=== PATIENT | female | born 1955 | race Caucasian/White ===

== ENCOUNTER 2017-03-11 18:30 | Emergency (ER) | payer BC ==
[2017-03-11] MEDS ORDERED: Sodium Chloride 0.9% 1,000 ML PRIMARY IV ONE (18:47)
[2017-03-11] MEDS ORDERED: NORMAL SALINE 10 ML SYRINGE FLUSH IVP PRN (18:47)
[2017-03-11 19:19] LABS: BASOPHILS # (AUTO) 0.04 10*3/UL; BASOPHILS % (AUTO) 0.5 % (0-1); EOSINOPHILS % (AUTO) 2.6 % (0-8); HEMATOCRIT 40.1 % (37.0-47.0); HEMOGLOBIN 12.6 g/dL (12.0-16.0); LYMPHOCYTES # (AUTO) 2.18 10*3/uL; MEAN CORPUSCULAR HEMOGLOBIN 28.4 PG (27-31); MEAN CORPUSCULAR HGB CONC 31.4 g/dL (33-37); MEAN CORPUSCULAR VOLUME 90.3 FL (81-99); MEAN PLATELET VOLUME 9.6 FL (7.4-12.2); MONOCYTES # (AUTO) 0.79 10*3/UL (0.3-0.8); MONOCYTES % (AUTO) 10.3 % (5-15); NEUTROPHILS # (AUTO) 4.45 10*3/UL; NEUTROPHILS % (AUTO) 57.9 % (50-80); RED BLOOD COUNT 4.44 10^6/uL (4.20-5.40)
[2017-03-11 19:23] LABS: VENOUS PH 7.38 (7.32-7.42)
[2017-03-11 19:23] LABS: PLATELET MORPHOLOGY COMMENT NORMAL MORPHOLOGY (NORM); RBC MORPHOLOGY COMMENT NORMAL MORPHOLOGY (NORM); WBC MORPHOLOGY COMMENT NORMAL MORPHOLOGY (NORM)
[2017-03-11 19:32] LABS: BLOOD UREA NITROGEN 16 mg/dL (7-22); BUN/CREATININE RATIO 17.77 (6-20); EST GLOMERULAR FILTRATION > 60 (>60 ml/min/1.73m(2)); SERUM ALBUMIN 4.1 g/dL (3.5-4.8)
[2017-03-11 19:45] LABS: CREATINE KINASE MB 0.94 NG/ML (0.00-5.00)
[2017-03-11 19:46] LABS: TROPONIN I < 0.012 ng/mL (< 0.040)
[2017-03-11 21:43] VITALS: RESP 20; TEMP 98
--- NOTE | 2017-03-11 21:55 | EKG ---
[address] [address] Measurements Intervals [place] Rate: 59 P: 86 NC: 177 QRS: 27 QRSD: 97 T: 41 QT: 465 QTc: 465 Interpretive Statements SINUS BRADYCARDIA Compared to ECG 07/09/2015 11:31:19 Sinus rhythm no longer present Electronically Signed On 03-12-17 09:08:47 MDT by Jayden Rojas MD [email or web address]
--- NOTE | 2017-03-12 06:31 | PDOC ---
Palpitations HPI - General Chief Complaint: Palpitations Stated Complaint: PALPITATIONS WITH DIZZINESS AND NAUSEA Date Seen by Provider: 03/11/17 Time Seen by Provider: 18:37 Source: POSITIVE: Patient Exam Limitations: POSITIVE: No limitations Nurse's Notes Reviewed & Considered: Yes Nurse's Notes Reviewed & Considered: Yes - History of Present Illness Initial Comments: The patient is a 61 year old female. She states that for the past 2 weeks she has intermittently had this sensation of "my heart skipping beats". She does not think her heart rate has been accelerated. She has had no associated chest pain. She states that when she gets these episodes she does have a sensation of "dizziness and nausea". She has not had any loss of consciousness or syncope. Patient has a history of chronic back pain and states that she has had two "spinal fusions "which she states were complicated by adhesive arachnoiditis in 2011 which he states causes chronic back pain. She had a gastric bypass in the past and states that she initially lost 100 pounds, but has gained 50 pounds back. She uses a fentanyl patch and gabapentin for pain control. Body Location Affected: REPORTS: Chest ("Heart palpitations) Timing: REPORTS: Abrupt, Intermittent Duration: >1 week (2 weeks) Severity: Moderate Quality: REPORTS: Other (Patient denies any pain anywhere) Gone now, lasted (minutes):: 2 Intermittent Episodes Lasting (minutes): 2 Context: DENIES: Onset w/ Emotional Upset, Onset w/ Sleep, Hx of Caffeine Use, Hx of Decongestant Use, Hx of Cocaine Abuse, Hx of Amphetamine Abuse, Hx of Arrhythmia, Hx of VT, Hx of SVT, Hx of Atrial Fibrillation, Hx of WPW, Other Associated Symptoms: REPORTS: Anxiety. DENIES: Fever, Chills, Sweating, Mid- Chest Pain, Chest Pain, Chest Discomfort, Precordial Chest Pain, Neck Pain, Back Pain, Headache, Hurts to Breathe, Shortness of Breath, Light-Headedness, Tingling in Hands, Tingling in Face, Muscle Spasms in Hands, Muscle Spasms in Feet, Other Modifying Factors: worse with: None Reported, Movement, Position Change, Pressing On Area, Sitting up, Rest, Antacids, Nitroglycerin, Oxygen, Aspirin, Deep breathing, Exertion, Other Similar Symptoms Previously: Yes Recently seen/treated/hospitalized: No Any Prior Injuries Related to Current Complaint?: No - Patient Home Medications Home Medications: Home Medications Multivitamins W-Minerals [Multivitamin] 1 each PO .AM 04/23/10 Potassium 1 tab PO BID 04/23/10 Cholecalciferol (Vitamin D3) [Vitamin D-3] 2,000 unit PO QD 120 Days 12/23/11 Denosumab [Prolia] 60 mg SUBCUT every 6 mo. #0 ml 04/29/12 Cetirizine HCl [Zyrtec] 1 tab PO DAILY PRN 11/03/12 Magnesium l-Lactate [Mag-Tab Sr] 1 tab PO BID 03/08/13 [place]-3 Fatty Acids [Fish Oil] 1 cap PO HS 03/08/13 Vitamin B Complex [B Complete] 1 each PO DAILY 03/22/13 Calcium Carbonate [Calcium] 1 tab PO BID tab 07/31/13 Estradiol [Estrace] 1 gm VAGINAL QHS #1 tube 12/28/13 Cyanocobalamin Inj [Vitamin B-12 Inj] 1,000 mcg IM MONTHLY #12 vial 11/08/14 Celecoxib [Celebrex] 1 cap PO QD #30 cap 03/19/15 Triamcinolone Acetonide 15 gm TOPICAL QID #1 tube 07/09/15 Famotidine [Pepcid] 20 mg PO BID #30 tab 07/15/15 Fluticasone Propionate [Flonase Allergy Relief] 2 spr KATI QHS #1 bottle Furosemide 1 tab PO QD PRN #30 tab 08/23/15 Potassium Chloride 1 cap PO QD #30 cap 08/23/15 Estrogens, Conj Vaginal Cream [Premarin Vaginal Cream] 0.5 - 1 gm VAGINAL 2-3x weekly #1 tube 08/27/15 Gentamicin Sulfate 1 drp EACH EYE Q4H PRN #1 drop 05/27/16 Ipratropium Velma 1 - 2 spr NS QID PRN #1 spray 11/05/16 Duloxetine HCl 1 cap PO DAILY #30 cap 12/24/16 Losartan Potassium 1 tab PO QHS #30 tab 12/24/16 Metoprolol Tartrate 1 tab PO BID #60 tab 12/24/16 Pantoprazole Sodium 1 tab ORAL QD #30 tab 01/25/17 Gabapentin 1 cap PO TID #90 cap 02/15/17 Temazepam 1 cap PO QHS #30 cap 02/15/17 Fentanyl 75 mcgh TRANSDERM Q72H #10 patch 02/24/17 Oxycodone HCl 1 tab PO QID PRN #120 tab 02/24/17 Tizanidine HCl 1 tab PO Q8H PRN #90 tab 03/08/17 - Patient Allergies Allergies/Adverse Reactions: Allergies Allergy/AdvReac Type Severity Reaction Status Date / Time adhesive Allergy Intermediate blisters Verified 03/11/17 18:50 CATARINO Inhibitors AdvReac Severe HEADACHE, Verified 03/11/17 18:50 [Catarino Inhibitors] RAW THROAT, COUGHING Past Medical History - heen HEENT History: Denies History Cardiovascular History: Hypertension Additional Cardiovasular History: HX OF CHEST PAIN 01/30/13 NON CARDIAC Respiratory History: Pneumonia, Sleep Apnea, Home CPAP Use Additional Respiratory History: INSOMNIA; RENETTA Gastrointestinal History: GERD, Peptic Ulcer Disease, GI Bleed Additional Gastrointestinal History: CONSTIPATION/DIARRHEA/ HX GI BLEED SOURCE NOT IDENTIFIED Genitourinary History: Denies History Endocrine History: Denies History Musculoskeletal History: Osteoporosis, Back Pain, Joint Pain Prosthesis or Implant: Yes (LUMBAR FUSION) Additional Musculoskeletal History: BILAT HIP PAIN Neurological History: Frequent Headaches Additional Neurological History: DIZZINESS Blood Disorders: Denies History Additional Blood Disorders History: HISTORY OF ANEMIA D/T GASTRIC BYPASS Psychiatric History: Denies History History of Sexually Transmitted Diseases: No Female Reproductive History: Denies History Obstetrical History: Denies History Cancer History: Denies History In Past Year Been Physically Harmed or Verbally Threatened: No History of MDRO: No History of Other Communicable Diseases: No (CHICKENPOX MEASLES) Tobacco Use: Never Smoker Alcohol Use: None Substance Use Type: None Previous Surgical History: Yes Type / Date of Surgery: T&A 1967/HYST W/ BSO TVT-TO/LAP KASHIF 2004/COLONOSCOPY ABOUT 5 YEARS AGO/UPPER ENDOSCOPY 2012/GASTRIC BYPASS 2005/ R KNEE SCOPE 2005/ VERTEBRAL FUSION L4-L5 2010 Anesthesia Reactions: No Malignant Hyperthermia: No Significant Family History: Heart disease, Cancer, Renal disease Additional Family History: alzheimers, MOTHER HAD RECTAL CA, FATHER HAD HEART DISEASE Past Medical History Reviewed: Reviewed - No Changes ROS - Limitations ROS Limitations: No Limitations Constitution: REPORTS: Denies Symptoms Cardiovascular: REPORTS: Heart Palpitations Respiratory: REPORTS: Denies Resp Symptoms Neurological: REPORTS: Denies Neuro Symptoms Gastrointestinal: REPORTS: Nausea Endocrine: REPORTS: Denies Symptoms Musculoskeletal: REPORTS: Denies MS Symptoms Genitourinary: REPORTS: Denies Symptoms Eyes: REPORTS: Denies Symptoms ENT: REPORTS: Denies Symptoms Skin: REPORTS: Denies Skin Symptoms Lympathic: REPORTS: Denies Lympathic Symptoms Immunologic: POSITIVE: Denies Symptoms Psychiatric: POSITIVE: Anxiety Palpitations Exam - General Appearance General Appearance: REPORTS: Alert, Cooperative, No Acute Distress, No Evidence of Trauma, Anxious - HEENT HEENT: POSITIVE: Head Inspection Nml, Eyes Inspection Nml, Ears Inspection Nml, Nose Inspection Nml, Oral/Dental Inspect. Nml, Pharynx Inspect. Nml, PERRL, EOMI - Neck Neck: POSITIVE: Normal Inspection - Respiratory Respiratory: REPORTS: No Respiratory Distress, Breath Sounds Normal, Chest Non- Tender - Cardiovascular Cardiovascular: POSITIVE: Regular Rate and Rhythm, Normal PMI, No JVD, No Murmur , No Gallop, No Friction Rub Peripheral Pulses: Radial (R): 2+, Radial (L): 2+ - Abdomen Abdomen: Soft: (All Quadrants), Normal Bowel Sounds: (All Quadrants), Denies Tenderness: (All Quadrants), No Splenomegaly: (All Quadrants), No Hepatomegaly: (All Quadrants), No Guarding: (All Quadrants), No Rebound: (All Quadrants), No Palpable Pulse: (All Quadrants), No Palpabale Mass: (All Quadrants), No Distention: (All Quadrants), No Rigidity: (All Quadrants) - Back Back: POSITIVE: Normal Inspection - Skin Skin: REPORTS: Intact, Normal For Race, Warm, Dry, No Rash - Extremities Extremity: Non-Tender: (All Extremities), Normal ROM: (All Extremities), Normal Inspection: (All Extremities) - Neurological / Psychological Neurological: POSITIVE: Oriented X3, store facility technician Normal As Tested, Motor Normal, Sensation Normal, 5, 6 Palpitations Progress - Results Reviewed by me Xrays/CTs/US Reviewed by me: Yes Discussed with Radiologist: No Radiology Findings: Some elevation of left hemidiaphragm; otherwise normal Lab Results Reviewed: Yes Lab Results:: Laboratory Results 03/11/17 03/11/17 03/11/17 Range/Units 19:16 19:18 19:30 WBC 7.68 (4.8-10.8) 10^3/uL RBC 4.44 (4.20-5.40) 10^6/uL Hgb 12.6 (12.0-16.0) g/dL Hct 40.1 (37.0-47.0) % MCV 90.3 (81-99) FL MCH 28.4 (27-31) PG MCHC 31.4 L (33-37) g/dL RDW Std Deviation 49.1 (39-50) fL RDW Coeff of [place] 15.1 H (11.5-14.5) % Plt Count 333 (140-350) 10*3/uL MPV 9.6 (7.4-12.2) FL Immature Gran % (Auto) 0.3 (0-5) % Neut % (Auto) 57.9 (50-80) % Lymph % (Auto) 28.4 (10-50) % [place] % (Auto) 10.3 (5-15) % Eos % (Auto) 2.6 (0-8) % Baso % (Auto) 0.5 (0-1) % Immature Gran # (Auto) 0.02 10*3/UL Neut # (Auto) 4.45 10*3/UL Lymph # (Auto) 2.18 10*3/uL [place] # (Auto) 0.79 (0.3-0.8) 10*3/UL Eos # (Auto) 0.20 10*3/UL Baso # (Auto) 0.04 10*3/UL WBC Morphology Comment Normal morphology (NORM) Plt Morphology Comment Normal morphology (NORM) RBC Morph Comment Normal morphology (NORM) VBG pH 7.38 (7.32-7.42) VBG pCO2 45 (45-55) mmHg VBG HCO3 27 H (22-26) mmol/L VBG Base Excess 2 (-2-2) MMOL/L Sodium 141 (135-145) meq/L Potassium 4.1 (3.8-5.2) meq/L Chloride 103 (98-112) meq/L Carbon Dioxide 28 (23-33) meq/L Anion Gap 10 (5-20) BUN 16 (7-22) mg/dL Creatinine 0.9 (0.50-1.20) mg/dL Estimated GFR > 60 (>60 ml/min/1.73m(2)) BUN/Creatinine Ratio 17.77 (6-20) Glucose 97 (78-110) mg/dL Calculated Osmolality 292.0 (267-292) mOsm/kg Calcium 9.0 (8.7-10.7) mg/dL Total Bilirubin 0.5 (0.3-1.2) mg/dL AST 20 (8-39) IU/L ALT 29 (9-52) IU/L Alkaline Phosphatase 86 (38-126) IU/L CK-MB (CK-2) 0.94 (0.00-5.00) NG/ML Troponin I < 0.012 (< 0.040) ng/mL Total Protein 7.4 (6.1-8.0) g/dL Albumin 4.1 (3.5-4.8) g/dL Globulin 3.3 (2.50-4.10) g/dL Albumin/Globulin Ratio 1.20 L (1.3-2.0) mg/g TSH 1.33 (0.2700-4.2000) uIU/mL EKG Interpreted/Reviewed By Me:: Yes (normal; normal sinus rhythm) EKG Interpretation:: POSITIVE: Normal Sinus Rhythm, Normal Rate, Normal Intervals, Normal [place], Normal QRS, Normal ST/T - Patient's Progress Pain Medication Addressed: POSITIVE: Not Applicable School/Work Release Addressed: POSITIVE: Not Applicable Re-examine Time: 20:05 Re-Examine Comment: Patient kept on telemetry monitor throughout her stay in the emergency room. Patient remained in normal sinus rhythm and was asymptomatic, except she was mildly anxious. Status: POSITIVE: Unchanged, Re-Examined - Consult Counseled: POSITIVE: Patient, RE: Lab Results, RE: Radiology Results, RE: DX, RE : Need for F/U Patient Care Time - Estimated PCT Patient Care Time (In Minutes): 48 Vital Signs - VS Reviewed Vital Signs Reviewed: Yes Discharge Clinical Impression: Intermittent palpitations, Anxiety Discharge Disposition: Discharged to Home Condition: Good Patient Instructions Given at Discharge: Palpitations (ED) Additional Instructions: Your evaluation in the emergency room showed that your heart rate was completely normal while you are here. Your blood tests, and chest x-ray were normal except for some mild elevation of the left diaphragm. Please have a Holter monitor test done. Follow-up with your primary care provider 3 or 4 days after the test is done. Return here anytime if condition worsens in any way. Follow-up with your primary care provider. Follow Up With: LILLIAN VILLA [Primary Care Provider] - (Instructions as above. Return here as necessary. Follow-up with your primary care provider.)
--- NOTE | 2017-03-12 18:23 | DI ---
PA /LATERAL CHEST X-RAY, 03/11/2017 6:49 PM : Clinical History: Dyspnea. Previous Exam: July 09, 2015 There is a new epidural stimulator device noted. There is mild cardiomegaly and there is stable elevation of the right hemidiaphragm. Lungs are clear . Mediastinal structures are normal. There are no pulmonary nodules. IMPRESSION: No acute disease.
== END 2017-03-11 20:32 | disposition home or self-care (01) ==
LOC: ER 18:30
DX: R00.2 Palpitations (principal); F41.9 Anxiety disorder, unspecified; R42 Dizziness and giddiness; R11.0 Nausea; I10 Essential (primary) hypertension; M81.0 Age-related osteoporosis without current pathological fracture
CPT/HCPCS: 36415; 71020; 80053; 82553; 82803; 84443; 84484; 85025; 93005; 93010; 96360; 99283; J7030

== ENCOUNTER → 2017-04-29 | Outpatient (CLI) | payer BC ==
[2017-04-29 08:57] LABS: HEMATOCRIT 41.4 % (37.0-47.0); HEMOGLOBIN 13.1 g/dL (12.0-16.0); MEAN CORPUSCULAR HEMOGLOBIN 28.3 PG (27-31); MEAN CORPUSCULAR HGB CONC 31.6 g/dL (33-37); MEAN CORPUSCULAR VOLUME 89.4 FL (81-99); MEAN PLATELET VOLUME 9.7 FL (7.4-12.2); RED BLOOD COUNT 4.63 10^6/uL (4.20-5.40)
[2017-04-29 09:15] LABS: BLOOD UREA NITROGEN 18 mg/dL (7-22); EST GLOMERULAR FILTRATION > 60 (>60 ml/min/1.73m(2))
[2017-04-29 12:38] LABS: BILIRUBIN,URINE NEGATIVE (NEG); CLARITY,URINE CLEAR (CLEAR); COLOR,URINE YELLOW; GLUCOSE, URINE (UA) NEGATIVE (NEG); NITRATE,URINE NEGATIVE (NEG); OCCULT BLOOD,URINE NEGATIVE (NEG); PROTEIN,URINE NEGATIVE (NEG); UROBILINOGEN,URINE 0.2 mg/dL (0.2)
[2017-04-29 12:42] LABS: SQUAMOUS EPITHELIAL CELL,UR RARE; URINE SAMPLE TYPE CLEAN CATCH URINE
== END ==
LOC: LAB 08:16
PROVIDERS: ATTEND Neurological Surgery
DX: Z01.812 Encounter for preprocedural laboratory examination (principal); G89.4 Chronic pain syndrome
CPT/HCPCS: 36415; 80048; 81001; 85027; 85610; 85730

== ENCOUNTER 2018-12-23 09:29 | Observation (INO) ==
[~2018-12-23 09:29] MED LIST: LIDOCAINE W/ SODIUM BICARB 0.5 ML SYR ONE; LIDOCAINE W/ SODIUM BICARB 0.5 ML SYR SUBD PRN; Lactated Ringers 1,000 ML PRIMARY IV ONE; Nasal Sanitizer POPSWAB ampule 3 AMP (Nozin) PREOP DOSE ENOS SCH; ceFAZolin Inj 2gm (Premix) 2 GM/50 ML BAG IV ONE
[2018-12-23] MEDS ORDERED: BUPivacaine Liposome/PF (Exparel) Inj 20ml vial INFIL ONE (09:42)
[2018-12-23] MEDS ORDERED: BUPivacaine Inj 0.5% PF (5mg/ml) 10ml vial ONE (09:45)
[2018-12-23] MEDS: Lactated Ringers 1,000 ML PRIMARY IV SCH ×3 (10:23→23:19)
[2018-12-23] MEDS ORDERED: PROPOFOL 10 MG/1 ML (200 MG/20 ML) VIAL IV ONE (10:39)
[2018-12-23] MEDS ORDERED: MIDAZOLAM HCL 2 MG/2 ML VIAL ONE (11:58)
[2018-12-23] MEDS ORDERED: BUPIVACAINE 0.5% W/ EPI - 10 ML VIAL ONE (11:58)
[2018-12-23] MEDS ORDERED: fentaNYL Inj 250 MCG/5 ML VIAL ONE (13:30)
[2018-12-23] MEDS ORDERED: BUPivacaine Inj 0.25% PF - 10ml vial ONE (13:30)
[2018-12-23] MEDS ORDERED: DEXAMETHASONE PF 10 MG/1 ML VIAL ONE (13:45)
--- NOTE | 2018-12-23 14:39 | ORTHO.OP ---
Surgery Date: 12/23/18 Preoperative Diagnosis: Posterior tibial tendonitis Postoperative Diagnosis: Same Data Control Assistant: Kenia Alfonso Anesthesia Provider: Juan Ramon Hyde MD Estimated Blood Loss (mL): 10
[2018-12-23] MEDS ORDERED: FUROSEMIDE 20 MG TABLET PO PRN (14:40)
[2018-12-23] MEDS ORDERED: ONDANSETRON 4 MG/2 ML VIAL IVP PRN (14:43)
--- NOTE | 2018-12-23 14:48 | CRNA.PROGR ---
Anesthesia Time - Procedure/Recovery Time Start Date: 12/23/18 End Date: 12/23/18 Anesthesia : Time In: 13:17 Anesthesia : Time Out: 14:46 Anesthesia : Total Time: 89 - Total Anesthesia Time Total Anesthesia Time (minutes): 89 - Other Weight: 99.337 kg Height: 5 ft 2 in Body Mass Index (BMI): 40.0 Anesthesia Type: General Anesthesia : LMA
[2018-12-23] MEDS ORDERED: LIDOCAINE W/ SODIUM BICARB 0.5 ML SYR SUBD PRN (14:49)
[2018-12-23] MEDS ORDERED: HYDROmorphone 2 MG/1 ML ONE ×2 (14:49→15:09)
[2018-12-23] MEDS ORDERED: fentaNYL Inj 100 MCG/2 ML VIAL IVP PRN (14:49)
--- NOTE | 2018-12-23 14:49 | CRNA.PROGR ---
Anesthesia Recovery Phase I - Post Anesthesia Evaluation Patient's Condition on Arrival in Phase I: Stable Patient's Condition on Arrival in Phase II: Stable Pain Level: 6
[2018-12-23] MEDS: HYDROmorphone 2 MG/1 ML IVP PRN ×3 (14:50→15:10)
[2018-12-23] MEDS ORDERED: Lactated Ringers 1,000 ML PRIMARY IV ONE (15:02)
[2018-12-23] MEDS ORDERED: KETOROLAC 15 MG/1 ML VIAL ONE (15:02)
[2018-12-23] MEDS ORDERED: DIAZEPAM 10 MG/2 ML (5 MG/1 ML) CARPUJECT IVP ONE (15:20)
[2018-12-23] MEDS ORDERED: DIAZEPAM 10 MG/2 ML (5 MG/1 ML) CARPUJECT ONE (15:21)
[2018-12-23] MEDS: KETOROLAC 15 MG/1 ML VIAL IVP PRN ×2 (15:24→21:14)
[2018-12-23] MEDS: tiZANidine Tab 4 MG TAB PO SCH ×2 (16:44→20:12)
[2018-12-23] MEDS: GABAPENTIN 300 MG CAPSULE PO SCH ×2 (16:44→20:12)
[2018-12-23] MEDS ORDERED: MORPHINE SULFATE 4 MG/1 ML ONE (16:56)
[2018-12-23] MEDS: MORPHINE SULFATE 4 MG/1 ML IVP PRN ×4 (16:56→23:18)
[2018-12-23] MEDS: oxyCODONE-ACETAMINOPHEN 5-325 TAB PO PRN ×2 (19:02→23:17)
[2018-12-23] MEDS: PANTOPRAZOLE 40 MG TABLET PO SCH (20:12)
[2018-12-23] MEDS: Metoprolol TARTRATE Tab 25 MG TAB PO SCH (20:13)
[2018-12-23 20:33] VITALS: RESP 20
[2018-12-23] MEDS ORDERED: FLUTICASONE PROPIONATE 16 GRAM (120 SPRAYS / BOTTLE) ENOS SCH (21:00)
[2018-12-23] MEDS ORDERED: TEMAZEPAM 15 MG CAPSULE PO SCH (21:00)
[2018-12-24] MEDS: tiZANidine Tab 4 MG TAB PO SCH ×3 (02:49→14:41)
[2018-12-24] MEDS: KETOROLAC 15 MG/1 ML VIAL IVP PRN ×3 (02:50→14:41)
[2018-12-24] MEDS: oxyCODONE-ACETAMINOPHEN 5-325 TAB PO PRN ×4 (04:12→16:18)
[2018-12-24] MEDS: MORPHINE SULFATE 4 MG/1 ML IVP PRN (04:44)
--- NOTE | 2018-12-24 06:11 | ORTHO.PROG ---
Last Taken Vital Signs: Vital Signs - Last Taken Temperature 97.1 F 12/24/18 04:26 Pulse Rate 55 L 12/24/18 04:26 Respiratory Rate 20 12/24/18 00:12 Blood Pressure 113/56 12/24/18 04:26 Pulse Ox 98 12/24/18 04:26 Subjective: Pt feeling well this am. Requesting valium for discharge. Objective: Splint c/d/i. Toes WWP. Assessment: POD #1 left flatfoot reconstruction. Pt kept for pain control overnight, OK for d/c home later today. Valium script written.
[2018-12-24] MEDS: PANTOPRAZOLE 40 MG TABLET PO SCH (08:07)
[2018-12-24] MEDS: Metoprolol TARTRATE Tab 25 MG TAB PO SCH (08:07)
[2018-12-24] MEDS: GABAPENTIN 300 MG CAPSULE PO SCH ×2 (08:07→14:41)
[2018-12-24 14:17] VITALS: BP 133/67; TEMP 97.2; O2SAT 92
[2018-12-24] MEDS: Lactated Ringers 1,000 ML PRIMARY IV SCH (14:35)
--- NOTE | 2018-12-26 14:31 | OTI REPORT ---
Thank you for the referral of Rubia Olvera. She was seen on 12/24/18 for an occupational therapy inpatient evaluation status post left posterior tibial surgery. SUBJECTIVE: The patient is a 63-year-old female who is being seen secondary to having a posterior tibial surgery on her left foot. The patient reports that her main concern is that she cannot jump onto the stairs with a walker and she has four stairs going into her home. The patient was issued a walker as well as a knee scooter for home. PAST MEDICAL HISTORY: Past medical history can be found in the patient's medical record. OBJECTIVE FINDINGS: Bed mobility: The patient was able to come from supine to sit. Activities of daily living: We worked on dressing skills. The patient was able to don pants with contact guard assist. The patient ambulated to the toilet and completed a toilet transfer with min assist. She does have difficulty sitting and standing from lower surfaces. A high rise toilet seat is indicated. The patient is non weight-bearing on the left leg so a shower chair was issued secondary to the patient not being able to package reinspector shower for longer periods of time. Strength: The patient reports that her upper extremities are really weak. The patient has strength of 3+/5 in bilateral upper extremities in all planes and ranges. Functionally the patient does not have enough upper extremity strength to push herself up onto the stairs as we did attempt this today. Ambulation: The patient did use the knee walker and the alignment was really off. She had difficulty steering as the handlebars and the wheels continually got off center. The therapist did have the maintenance crew come and work on the scooter for the patient. The patient was able to walk with the knee scooter but needed some assistance as she did have some balance difficulties. We then went to the stairwell. We attempted hopping up the steps; however, the patient was not able to hop up on the steps by herself. We then tried to go down the stairs. The patient was able to use the walker and the side rail but she used a lot of energy and had a lot of difficulty. The patient required min to mod assist to go down the stairs non weight-bearing. She then sat on the stairs and scooted her way back up with a lot of effort. Once at the top of the stairs, we decided to get a chair so the patient could turn onto her knees and then stand up from the chair. This was difficult for the patient and she needed min assist. We then went to the knee scooter again and had the patient ambulate back to her room which was difficult secondary to the misalignment of the scooter. ASSESSMENT: Dr. Kaur was called and some of the concerns were discussed. The doctor would like the patient to be discharged today if at all possible. The therapist did arrange for maintenance to align the patient's scooter. The therapist wanted the family to be available and to learn the techniques of going up and down the stairs to see if this would be feasible for the patient. The patient is still having a lot of difficulty with stairs. The other concern is that her pain pump has run out so the patient is going to try oral pain medication. The patient would benefit from at least one more session for family teaching. The therapist will return this afternoon. Short-Term Goals: To be met by discharge from inpatient: Patient will be able to ascend and descend stairs with contact guard assist using adaptive methods. Patient will be able to complete a toilet transfer with modified independence. Patient will be able to complete scooter activities as well as ambulation with walker with stand by assist. Long-Term Goals: To be met following discharge from inpatient: Patient will return home with min assist for ADLs, functional tasks, stairs, and functional transfers. TREATMENT PLAN: Patient will be seen B.I.D during the week and one time per day over the weekend as an inpatient to address the above goals and objectives. Dr. Kaur does want the patient to try to get discharged this afternoon if possible. INITIAL TREATMENT: Treatment today consisted of the initial evaluation activities only. LOVELY
--- NOTE | 2018-12-26 14:37 | OT PM DAY ---
Diagnosis : Left Posterior Tibial Surgery PM - Occupational Therapy S: The patient reports she is feeling a little better. O: The patient's , daughter, and son-in-law were all present during the session. The patient was able to come from supine to sit independently. While sitting edge of bed she was able to get onto the knee scooter. The patient was able to scoot to the stairwell which was an improvement from this morning. Once at the stairwell, we had the patient's in front of her and her son-in-law behind her, practicing help her get down the stairs which she was able to do with contact guard assist. She then sat on the stairs and scooted up by herself with some verbal cues to bring her right leg for more of the weight-bearing to push up onto the stairs. Once she got to the top platform, she was able to turn and we showed the as well as the son-in-law how to push up off of the chair so that she can come to a standing position which she was able to do with very little assistance. She then stood and we got her back on the knee scooter and back to her room. Education to the family was highly emphasized today, especially for the stairs. They did take the adaptive devices and stated that those would work with some of the toilets and showers that they have at home. A: The patient's family is feeling like they can get her home with assistance to get up the stairs. She does have some pain pump issues for her back but she is hoping to take care of that with oral medications. P: Patient will be discharged to home. LOVELY
== END 2018-12-24 16:30 | disposition home or self-care (01) ==
LOC: OR 09:29 → MED/SURG 09:29 → OPS 09:30
PROVIDERS: ADMIT Orthopaedic Surgery; ATTEND Orthopaedic Surgery